=== PATIENT | female | born 1945 | race Asian ===

== ENCOUNTER 2021-04-15 19:21 | Emergency (ER) | payer OTHER ==
[~2021-04-15] VITALS: Ht 172.7 cm; Wt 88.0 kg
--- NOTE | 2021-04-15 19:35 | NUR ---
Pt bib by ambulance for possible seizure. BG of 404 at home. Pt awake and alert.
[2021-04-15] MEDS ORDERED: INSU100I14 (19:40)
[2021-04-15] MEDS ORDERED: GABA-532 PO (19:40)
[2021-04-15] MEDS ORDERED: LOSA25TA3 PO (19:40)
[2021-04-15] MEDS ORDERED: IV NORMAL SALINE 1000 ML BAG IV ONE (19:45)
[2021-04-15] MEDS ORDERED: OXYCODONE/APAP 5-325 MG TABLET PO ONE (19:45)
[2021-04-15] MEDS ORDERED: OXYCODONE/APAP 5-325 MG TABLET ONE (19:58)
[2021-04-15 20:12] LABS: HEMATOCRIT 38.1 % (31.2-41.9); MEAN CORPUSCULAR VOLUME 89.5 fL (75.5-95.3); PLATELET COUNT (AUTO) 368 K/uL (179-408)
--- NOTE | 2021-04-15 20:21 | NUR ---
Pt to CT
[2021-04-15 20:26] LABS: ALANINE AMINOTRANSFERASE 11 U/L (14-59); ALKALINE PHOSPHATASE 109 U/L (50-136); ASPARTATE AMINOTRANSFERASE 12 U/L (15-37); BILIRUBIN,DIRECT 0.2 mg/dL (0.0-0.2); BILIRUBIN,TOTAL 0.4 mg/dL (0.2-1.0); CARBON DIOXIDE 23 mmol/L (21-32); CHLORIDE 98 mmol/L (98-107); CREATININE 1.6 mg/dL (0.6-1.3); POTASSIUM 3.9 mmol/L (3.5-5.1); TOTAL PROTEIN, SERUM 7.6 g/dL (6.4-8.2); UREA NITROGEN, BLOOD 30 mg/dL (7-18)
[2021-04-15 20:27] LABS: GLUCOSE 504 mg/dL (74-106)
--- NOTE | 2021-04-15 20:42 | NUR ---
Pt back from CT
--- NOTE | 2021-04-15 20:49 | NUR ---
Dr. Thurman notified of of 504
[2021-04-15] MEDS ORDERED: ATOR80TA PO (21:29)
[2021-04-15] MEDS ORDERED: LOSA100T31 PO (21:29)
[2021-04-15] MEDS ORDERED: INSU100I35 SQ (21:29)
[2021-04-15] MEDS ORDERED: INSU100V11 (21:29)
[2021-04-15] MEDS ORDERED: GABA600T12 PO (21:29)
[2021-04-15] MEDS ORDERED: BISO1TAB99 PO (21:29)
[2021-04-15] MEDS ORDERED: [UNRECOGNIZED DRUG - CODE] PO (21:29)
[2021-04-15] MEDS ORDERED: AMLO-212 PO (21:29)
[2021-04-15] MEDS ORDERED: CHOL10005 PO (21:29)
[2021-04-15] MEDS ORDERED: VITA80008 PO (21:29)
[2021-04-15] MEDS ORDERED: OMEG1000 PO (21:29)
[2021-04-15] MEDS ORDERED: INSULIN REGULAR, HUMAN 300 UNIT/3 ML VIAL IV ONE (21:30)
[2021-04-15 21:46] LABS: *BILIRUBIN,URIN NEGATIVE (NEGATIVE); *CLARITY,URINE SLIGHTLY CLOUDY (CLEAR); *COLOR,URINE YELLOW (YELLOW); *KETONES,URINE 1+ (NEGATIVE); *UROBILINOGEN,URINE 0.2 E.U./dl (NORMAL); LEUKOCYTE ESTERASE ,URINE NEGATIVE (NEGATIVE); NITRITE, URINE POSITIVE (NEGATIVE); UGLUCOSE 2+ (NEGATIVE)
[2021-04-15 21:48] LABS: *BLOOD, URINE TRACE LYSED (NEGATIVE)
[2021-04-15] MEDS ORDERED: INSULIN REGULAR, HUMAN 300 UNIT/3 ML VIAL ONE (21:56)
--- NOTE | 2021-04-15 22:16 | NUR ---
Darian galeana in [facility] - 04/15/21 at [address] Thurman speaking with Dr. De La Garza
--- NOTE | 2021-04-15 22:26 | NUR ---
Pt BG of 372, 30 minutes after administration of 5 units of regular insulin iv, Dr. Thurman notified
--- NOTE | 2021-04-15 22:33 | NUR ---
Pt provided urine sample, no in and out catheter needed
--- NOTE | 2021-04-16 00:09 | NUR ---
Gave report to odalis wolf from [facility]
[2021-04-16 01:01] LABS: BACTERIA,URINE MANY /HPF (NONE SEEN); RBC,URINE 0-3 /HPF (0-3); SQUAMOUS EPITHELIAL CELL,UR MODERATE /HPF (NONE SEEN)
[2021-04-16] MEDS ORDERED: hydrALAZINE HCL 20 MG/1 ML VIAL ONE (02:43)
[2021-04-16 02:44] VITALS: BP 196/82
[2021-04-16] MEDS ORDERED: hydrALAZINE HCL 20 MG/1 ML VIAL IV ONE (02:45)
--- NOTE | 2021-04-16 02:58 | NUR ---
[facility] 405 at bedside to transfer pt
--- NOTE | 2021-04-16 03:07 | NUR ---
[facility] 405 transfered pt out of facility in stable condition
== END 2021-04-16 03:10 | disposition short-term general hospital (02) ==
LOC: ER 19:24
DX: R56.9 Unspecified convulsions (principal); E11.65 Type 2 diabetes mellitus with hyperglycemia; Z79.4 Long term (current) use of insulin; Z88.0 Allergy status to penicillin; D72.829 Elevated white blood cell count, unspecified; Z20.822 Contact with and (suspected) exposure to COVID-19; R10.32 Left lower quadrant pain
CPT/HCPCS: 36415; 70450; 71045; 74176; 80048; 80076; 81001; 82009; 85025; 87040; 87077; 87086; 87186; 87426; 93005; 96361; 96374; 96375; 99285; J0360; J1815; A4663; J7030